=== PATIENT | female | born 1995 | race Caucasian/White ===

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

== ENCOUNTER → 2017-06-04 | Outpatient (CLI) | payer BC, OTHER | LOC: M EKG 15:43 | DX: E66.01 Morbid (severe) obesity due to excess calories (principal) | CPT/HCPCS: 71046 ==

== ENCOUNTER 2017-06-17 07:16 | Emergency (ER) | payer BC, OTHER ==
[2017-06-17] MEDS: NS 1,000 ML IV (07:30)
[2017-06-17 07:55] LABS: BASO # 0.1 10^3/uL (0.0-0.2); BASO % 0.6 % (0.0-1.0); EOS # 0.1 10^3/uL (0.0-0.50); EOS % 0.6 % (0.0-3.0); HEMATOCRIT 42.2 % (36.0-47.0); HEMOGLOBIN 13.9 g/dl (12.0-16.0); IMMATURE GRANULOCYTE % 0.5 % (0-3.0); LYMPH % 18.1 % (24.0-44.0); MEAN CORPUSCULAR HEMOGLOBIN 27.9 pg (27.0-33.0); MEAN CORPUSCULAR HGB CONC 32.9 g/dl (32.0-36.5); MEAN CORPUSCULAR VOLUME 84.6 fl (80.0-96.0); MONO # 0.7 10^3/uL (0.0-0.8); MONO % 6.6 % (0.0-5.0); NEUTROPHILS # 7.9 10^3/uL (1.8-7.7); NEUTROPHILS % 73.6 % (36.0-66.0); PLATELET COUNT, AUTOMATED 489 10^3/uL (150-450); RED BLOOD COUNT 4.99 10^6/uL (4.00-5.40); RED CELL DISTRIBUTION WIDTH 13.3 % (11.5-14.5); WHITE BLOOD COUNT 10.8 10^3/uL (4.0-10.0)
[2017-06-17 08:04] LABS: CONTROL LINE HCG INT CTR LINE PRESENT; HCG, SERUM QUALITATIVE NEGATIVE (NEGATIVE)
[2017-06-17 08:19] LABS: ANION GAP 9 MEQ/L (8-16); BLOOD UREA NITROGEN 15 MG/DL (7-18); CARBON DIOXIDE LEVEL 26 MEQ/L (21-32); CHLORIDE LEVEL 106 MEQ/L (98-107); CREATININE FOR GFR 0.68 MG/DL (0.55-1.30); GLUCOSE, FASTING 90 MG/DL (70-100); POTASSIUM SERUM 4.1 MEQ/L (3.5-5.1); SODIUM LEVEL 141 MEQ/L (136-145)
[2017-06-17 10:23] LABS: AMPHETAMINES LEVEL URINE NEGATIVE (NEGATIVE); BARBITURATES URINE NEGATIVE (NEGATIVE); BENZODIAZEPINES URINE NEGATIVE (NEGATIVE); CANNABINOIDS URINE NEGATIVE (NEGATIVE); COCAINE METABOLITE URINE NEGATIVE (NEGATIVE); METHADONE URINE NEGATIVE (NEGATIVE); OPIATES URINE NEGATIVE (NEGATIVE); PHENCYCLIDINE URINE NEGATIVE (NEGATIVE)
== END 2017-06-17 11:03 | disposition home or self-care (01) ==
LOC: M ED 07:16
DX: R55 Syncope and collapse (principal); S00.03XA Contusion of scalp, initial encounter; W22.8XXA Striking against or struck by other objects, initial encounter; Y92.89 Other specified places as the place of occurrence of the external cause; Z79.890 Hormone replacement therapy; Z79.899 Other long term (current) drug therapy; Z88.8 Allergy status to other drugs, medicaments and biological substances
CPT/HCPCS: 70450

== ENCOUNTER 2017-12-19 13:42 | Emergency (ER) | payer OTHER, BC ==
[2017-12-19] MEDS: ACETAMINOPHEN 325 MG TAB PO (14:27)
== END 2017-12-19 15:14 | disposition home or self-care (01) ==
LOC: M ED 13:42
DX: S40.012A Contusion of left shoulder, initial encounter (principal); V43.52XA Car driver injured in collision with other type car in traffic accident, initial encounter; Y92.410 Unspecified street and highway as the place of occurrence of the external cause; Y93.9 Activity, unspecified; Y99.9 Unspecified external cause status; Z79.899 Other long term (current) drug therapy; Z88.8 Allergy status to other drugs, medicaments and biological substances; Z91.040 Latex allergy status
CPT/HCPCS: 73030

== ENCOUNTER → 2017-12-19 | Outpatient (CLI) | payer BC, OTHER ==
[2017-12-19 17:25] LABS: ALBUMIN 3.2 GM/DL (3.2-5.2); ALKALINE PHOSPHATASE 76 U/L (45-117); ALT/SGPT 19 U/L (12-78); ANION GAP 6 MEQ/L (8-16); AST/SGOT 12 U/L (7-37); BILIRUBIN,TOTAL 0.4 MG/DL (0.2-1.0); BLOOD UREA NITROGEN 11 MG/DL (7-18); CALCIUM LEVEL 8.5 MG/DL (8.5-10.1); CARBON DIOXIDE LEVEL 29 MEQ/L (21-32); CHLORIDE LEVEL 108 MEQ/L (98-107); CREATININE FOR GFR 0.68 MG/DL (0.55-1.30); GLUCOSE, FASTING 59 MG/DL (70-100); POTASSIUM SERUM 3.9 MEQ/L (3.5-5.1); SODIUM LEVEL 143 MEQ/L (136-145); TOTAL PROTEIN 6.4 GM/DL (6.4-8.2)
[2017-12-19 17:33] LABS: BASO # 0.1 10^3/uL (0.0-0.2); BASO % 0.7 % (0.0-1.0); EOS # 0.1 10^3/uL (0.0-0.50); EOS % 0.7 % (0.0-3.0); HEMATOCRIT 39.5 % (36.0-47.0); HEMOGLOBIN 12.6 g/dl (12.0-15.5); IMMATURE GRANULOCYTE % 0.5 % (0-3.0); LYMPH # 3.5 10^3/uL (1.5-6.5); LYMPH % 36.6 % (24.0-44.0); MEAN CORPUSCULAR HEMOGLOBIN 28.7 pg (27.0-33.0); MEAN CORPUSCULAR HGB CONC 31.9 g/dl (32.0-36.5); MONO # 0.6 10^3/uL (0.0-0.8); MONO % 6.2 % (0.0-5.0); NEUTROPHILS # 5.3 10^3/uL (1.8-7.7); NEUTROPHILS % 55.3 % (36.0-66.0); PLATELET COUNT, AUTOMATED 409 10^3/uL (150-450); RED BLOOD COUNT 4.39 10^6/uL (4.00-5.40); RED CELL DISTRIBUTION WIDTH 13.2 % (11.5-14.5); WHITE BLOOD COUNT 9.6 10^3/uL (4.0-10.0)
== END ==
LOC: M LRY 09:46
DX: R10.813 Right lower quadrant abdominal tenderness (principal)

== ENCOUNTER → 2018-01-26 | Outpatient (CLI) | payer BC, OTHER | LOC: M RAD 07:30 | DX: K80.20 Calculus of gallbladder without cholecystitis without obstruction (principal); K76.0 Fatty (change of) liver, not elsewhere classified; R10.9 Unspecified abdominal pain | CPT/HCPCS: 76705 ==

== ENCOUNTER → 2018-06-21 | Outpatient (REF) | payer OTHER ==
[~2018-06-21] MED LIST changes: +IBUP-1022 PO; -IBUP600T26 PO; +NITR100C2; +SERT25TA88
== END ==
LOC: M LAB REF 11:50
PROVIDERS: ATTEND Physician Assistant
DX: J20.9 Acute bronchitis, unspecified (principal)

== ENCOUNTER 2018-07-20 05:07 | Emergency (ER) | payer OTHER ==
[~2018-07-20] VITALS: Ht 162.6 cm; Wt 118.2 kg
[2018-07-20 05:07] VITALS: BP 130/74
[2018-07-20] MEDS ORDERED: BOTO10VL IM (05:12)
[2018-07-20] MEDS ORDERED: KETOROLAC 60 MG/2 ML VIAL (J1885) IM ONE (06:15)
[2018-07-20] MEDS ORDERED: ACETAMINOPHEN TAB 650MG DOSE (2X325MG) PO ONE (06:15)
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
[2018-07-21] MEDS ORDERED: SERT-155 (11:47)
[2018-07-21] MEDS ORDERED: OMEP-221 (11:47)
[2018-07-21] MEDS ORDERED: METH2.5T48 (11:47)
== END 2018-07-20 06:24 | disposition home or self-care (01) ==
LOC: M ED 05:07
DX: M23.91 Unspecified internal derangement of right knee (principal); E07.9 Disorder of thyroid, unspecified; E78.9 Disorder of lipoprotein metabolism, unspecified; F33.9 Major depressive disorder, recurrent, unspecified; F41.9 Anxiety disorder, unspecified; Z79.899 Other long term (current) drug therapy; Z79.890 Hormone replacement therapy; Z88.8 Allergy status to other drugs, medicaments and biological substances; Z91.040 Latex allergy status

== ENCOUNTER 2018-07-21 11:41 | Emergency (ER) | payer OTHER ==
[2018-07-21 11:41] VITALS: BP 106/53
[~2018-07-21 11:41] MED LIST changes: +BOTO10VL IM
[2018-07-21] MEDS ORDERED: OMEP-221 (11:47)
[2018-07-21] MEDS ORDERED: SERT-155 (11:47)
[2018-07-21] MEDS ORDERED: METH2.5T48 (11:47)
== END 2018-07-21 13:07 | disposition home or self-care (01) ==
LOC: M ED 11:41
DX: M23.91 Unspecified internal derangement of right knee (principal); Z79.899 Other long term (current) drug therapy; Z88.8 Allergy status to other drugs, medicaments and biological substances; Z91.040 Latex allergy status

== ENCOUNTER 2019-01-11 21:57 | Emergency (ER) | payer OTHER ==
[~2019-01-11] VITALS: Ht 162.6 cm; Wt 136.4 kg
[~2019-01-11 21:57] MED LIST changes: +METH2.5T48; +OMEP-221; +SERT-155
[2019-01-11] MEDS ORDERED: CYCL5TAB PO (22:12)
[2019-01-11] MEDS ORDERED: DULO1CAP5 PO (22:12)
[2019-01-11] MEDS ORDERED: BENL200I IM (22:12)
[2019-01-11] MEDS ORDERED: AMIT10TA PO (22:12)
[2019-01-11] MEDS ORDERED: ONDANSETRON 4MG/2ML VIAL (J2405) IV ONE (22:30)
[2019-01-11 22:34] LABS: BASO # 0.1 10^3/uL (0.0-0.2); BASO % 0.6 % (0.0-1.0); EOS # 0.1 10^3/uL (0.0-0.5); EOS % 1.3 % (0.0-3.0); HEMATOCRIT 37.7 % (36.0-47.0); HEMOGLOBIN 12.5 g/dl (12.0-15.5); LYMPH # 3.3 10^3/uL (1.5-5.0); MEAN CORPUSCULAR HEMOGLOBIN 28.9 pg (27.0-33.0); MEAN CORPUSCULAR HGB CONC 33.2 g/dl (32.0-36.5); MEAN CORPUSCULAR VOLUME 87.1 fl (80.0-96.0); MONO # 0.6 10^3/uL (0.0-0.8); MONO % 6.6 % (0.0-5.0); NEUTROPHILS # 5.5 10^3/uL (1.5-8.5); NEUTROPHILS % 57.3 % (36.0-66.0); PLATELET COUNT, AUTOMATED 406 10^3/uL (150-450); RED BLOOD COUNT 4.33 10^6/uL (4.00-5.40); WHITE BLOOD COUNT 9.6 10^3/uL (4.0-10.0)
[2019-01-11] MEDS ORDERED: METOCLOPRAMIDE INJ 10MG/2ML VIAL (J2765) IV ONE (22:45)
[2019-01-11] MEDS ORDERED: NS 1,000 ML IV ONE (22:45)
[2019-01-11 23:02] LABS: ALBUMIN 3.3 GM/DL (3.2-5.2); ALT/SGPT 20 U/L (12-78); BILIRUBIN,TOTAL 0.3 MG/DL (0.2-1.0); BLOOD UREA NITROGEN 17 MG/DL (7-18); CALCIUM LEVEL 8.9 MG/DL (8.5-10.1); CARBON DIOXIDE LEVEL 26 MEQ/L (21-32); CHLORIDE LEVEL 108 MEQ/L (98-107); CREATININE FOR GFR 0.87 MG/DL (0.55-1.30); GLOMERULAR FILTRATION RATE > 60.0 (>60); GLUCOSE, FASTING 90 MG/DL (70-100); POTASSIUM SERUM 4.5 MEQ/L (3.5-5.1); SODIUM LEVEL 140 MEQ/L (136-145); TOTAL PROTEIN 6.4 GM/DL (6.4-8.2)
[2019-01-12 00:37] LABS: HEMOGLOBIN A1c 5.4 %
[2019-01-12 00:43] VITALS: BP 172/80
--- NOTE | 2019-01-12 08:18 | ECGEPIP ---
[facility] - ED Test Date: 2019-01-11 Pat Name: SHAYNE REID Department: Room: - Gender: Female [employer] Operator: JMartin : 1995 Requested By: DANY Allred PA-C Order Number: [id number] Reading MD: Kiki Marvin Measurements Intervals [place] Rate: 81 P: -3 ME: 175 QRS: 15 QRSD: 105 T: 22 QT: 360 QTc: 418 Interpretive Statements SINUS RHYTHM SIMILAR 06/17/17 Electronically Signed on 01-12-2019 8:15:57 EDT by Kiki Marvin
== END 2019-01-12 01:43 | disposition home or self-care (01) ==
LOC: M ED 21:57
DX: E16.2 Hypoglycemia, unspecified (principal); R41.82 Altered mental status, unspecified; E78.5 Hyperlipidemia, unspecified; E03.9 Hypothyroidism, unspecified; Z98.84 Bariatric surgery status; Z88.8 Allergy status to other drugs, medicaments and biological substances; Z91.040 Latex allergy status; Z79.899 Other long term (current) drug therapy
CPT/HCPCS: 36415; 80053; 83036; 84702; 85025; 93005; 96374; 99284; J2765

== ENCOUNTER → 2019-08-11 | Outpatient (REF) | payer OTHER ==
[~2019-08-11] MED LIST changes: +AMIT10TA PO; +BENL200I IM; +CYCL5TAB PO; +DULO1CAP5 PO; -SERT-155; +SERT25TA21; -SERT25TA88; +SERT50TA29
== END ==
LOC: M LAB REF 09:30
PROVIDERS: ATTEND Nurse Practitioner Family
DX: J02.9 Acute pharyngitis, unspecified (principal)

== ENCOUNTER → 2020-01-02 | Outpatient (CLI) | payer OTHER ==
[~2020-01-02] MED LIST changes: +CYCL-707 PO; -CYCL10TA PO
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
== END ==
LOC: M LRY 15:07
PROVIDERS: ATTEND Physician Assistant
DX: S80.02XA Contusion of left knee, initial encounter (principal); X58.XXXA Exposure to other specified factors, initial encounter; Y92.89 Other specified places as the place of occurrence of the external cause

== ENCOUNTER 2020-03-18 11:40 | Emergency (ER) | payer OTHER, BC ==
[~2020-03-18] VITALS: Ht 162.6 cm; Wt 167.8 kg
[2020-03-18] MEDS ORDERED: AMIT75TA (12:00)
[2020-03-18] MEDS ORDERED: HYDR50TA70 (12:00)
[2020-03-18] MEDS ORDERED: KETOROLAC 60MG 2ML VIAL IM ONE (14:00)
[2020-03-18] MEDS ORDERED: LIDOCAINE 5% (LIDODERM) PATCH TD ONE (14:00)
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
[2020-03-18] MEDS ORDERED: LIDO5DIS41 TOP (14:40)
[2020-03-18] MEDS ORDERED: ROBA750T4 PO (14:40)
[2020-03-18 15:09] VITALS: BP 131/85
[2020-03-18] MEDS ORDERED: **NOTE PATIENT COMMENT** MISC XX SCH (21:00)
== END 2020-03-18 15:13 | disposition home or self-care (01) ==
LOC: M ED 11:40
DX: M54.9 Dorsalgia, unspecified (principal); V43.52XA Car driver injured in collision with other type car in traffic accident, initial encounter; Y92.410 Unspecified street and highway as the place of occurrence of the external cause; M32.9 Systemic lupus erythematosus, unspecified; M79.7 Fibromyalgia; G43.909 Migraine, unspecified, not intractable, without status migrainosus; F17.200 Nicotine dependence, unspecified, uncomplicated; Z91.040 Latex allergy status; Z88.8 Allergy status to other drugs, medicaments and biological substances; Z79.899 Other long term (current) drug therapy
CPT/HCPCS: 72125; 72128; 72131; 96372; 99283; J1885

== ENCOUNTER → 2020-05-15 | Outpatient (CLI) | payer BC, OTHER ==
[~2020-05-15] MED LIST changes: +AMIT75TA; +GASTROGRAFIN SOLUTION 30ML (Q9963) As Ordered ONE; +HYDR50TA70; +ISOVUE-370 76% 100ML VIAL As Ordered ONE; +LIDO5DIS41 TOP; +ROBA750T4 PO
--- NOTE | 2020-05-22 11:26 | REP ---
INDICATION: ABD PAIN. COMPARISON: None TECHNIQUE: Axial contrast-enhanced images from the lung bases to the pubic symphysis using oral and 100 cc Isovue 370 intravenous contrast material. Coronal and sagittal reformations obtained. This CT examination was performed using the following dose reduction techniques: Automated exposure control, adjustment of mA and/or kv according to the patient's size, and the use of iterative reconstruction technique. FINDINGS: Lung bases are clear. Visualized heart and pericardium normal. There is evidence for prior gastric bypass surgery and cholecystectomy without associated acute findings. Liver, spleen, pancreas, bilateral adrenal glands and kidneys are normal. The enteric system including gastric bypass, small, and large bowel appears normal. No evidence for obstruction or acute inflammatory process. Normal terminal ileum and appendix are identified in the right lower quadrant. Pelvis demonstrates normal bladder and age-appropriate uterus/adnexa. No ascites. No free air. No intraperitoneal or retroperitoneal adenopathy. Abdominal aorta and vasculature appear normal. Musculoskeletal structures are intact and without acute osseous abnormality. IMPRESSION: No acute abdominopelvic pathology appreciated. Evidence for prior gastric bypass surgery and cholecystectomy. <Electronically signed by Tim Waldrop > 05/22/20 1899
== END ==
LOC: M RAD 13:32
PROVIDERS: ATTEND Nurse Practitioner Women's Health
DX: R10.9 Unspecified abdominal pain (principal); Z98.84 Bariatric surgery status
CPT/HCPCS: 74177; Q9963; Q9967

== ENCOUNTER 2020-07-13 08:02 | Emergency (ER) | payer BC, OTHER ==
[~2020-07-13] VITALS: Ht 162.6 cm; Wt 155.8 kg
[~2020-07-13 08:02] MED LIST changes: -AMIT10TA PO; +AMIT10TA7 PO; -GASTROGRAFIN SOLUTION 30ML (Q9963) As Ordered ONE; -ISOVUE-370 76% 100ML VIAL As Ordered ONE
[2020-07-13] MEDS ORDERED: DULO1CAP6 (08:10)
[2020-07-13] MEDS ORDERED: methylPREDNISolone 125MG 2ML VIAL IV ONE (08:30)
[2020-07-13] MEDS ORDERED: MORPHINE 4 MG/ML 1ML VIAL/SYRINGE (J2270) IV ONE (08:30)
[2020-07-13] MEDS ORDERED: NS 1,000 ML IV ONE (08:30)
[2020-07-13 08:40] LABS: BASO # 0.1 10^3/uL (0.0-0.2); BASO % 0.7 % (0.0-1.0); EOS # 0.2 10^3/uL (0.0-0.5); EOS % 1.2 % (0.0-3.0); HEMATOCRIT 40.7 % (36.0-47.0); HEMOGLOBIN 13.1 g/dl (12.0-15.5); LYMPH # 2.8 10^3/uL (1.5-5.0); LYMPH % 23.5 % (24.0-44.0); MEAN CORPUSCULAR HEMOGLOBIN 28.8 pg (27.0-33.0); MEAN CORPUSCULAR HGB CONC 32.2 g/dl (32.0-36.5); MEAN CORPUSCULAR VOLUME 89.5 fl (80.0-96.0); MONO # 0.7 10^3/uL (0.0-0.8); MONO % 5.6 % (2.0-8.0); NEUTROPHILS # 8.3 10^3/uL (1.5-8.5); NEUTROPHILS % 68.7 % (36.0-66.0); PLATELET COUNT, AUTOMATED 497 10^3/uL (150-450); RED BLOOD COUNT 4.55 10^6/uL (4.00-5.40); WHITE BLOOD COUNT 12.1 10^3/uL (4.0-10.0)
[2020-07-13] MEDS ORDERED: BACITRACIN OINTMENT 30GM TUBE TOP ONE (08:40)
[2020-07-13] MEDS ORDERED: ONDANSETRON 4MG/2ML VIAL IV ONE (08:40)
[2020-07-13 08:58] LABS: ERYTHROCYTE SEDIMENTATION RATE 30 mm/hr (0-20)
[2020-07-13 09:04] LABS: ALBUMIN 3.3 GM/DL (3.2-5.2); ALT/SGPT 22 U/L (12-78); BILIRUBIN,DIRECT < 0.1 MG/DL (0.0-0.2); BILIRUBIN,TOTAL 0.2 MG/DL (0.2-1.0); BLOOD UREA NITROGEN 10 MG/DL (7-18); C REACTIVE PROTEIN QUANTITATIV 0.65 MG/DL (0.00-0.30); CALCIUM LEVEL 8.7 MG/DL (8.5-10.1); CARBON DIOXIDE LEVEL 26 MEQ/L (21-32); CHLORIDE LEVEL 107 MEQ/L (98-107); CPK CREATINE PHOSPHOKINASE 142 U/L (26-192); CREATININE FOR GFR 0.91 MG/DL (0.55-1.30); GLOMERULAR FILTRATION RATE > 60.0 (>60); GLUCOSE, FASTING 95 MG/DL (70-100); POTASSIUM SERUM 3.9 MEQ/L (3.5-5.1); SODIUM LEVEL 139 MEQ/L (136-145); TOTAL PROTEIN 6.6 GM/DL (6.4-8.2)
[2020-07-13 09:18] LABS: RSV AMPLIFICATION NEGATIVE (NEGATIVE)
[2020-07-13] MEDS ORDERED: KETOROLAC 30 MG/ML 1ML VIAL IV ONE (09:55)
[2020-07-13] MEDS ORDERED: METOCLOPRAMIDE INJ 10MG/2ML VIAL (J2765 PER 1) IV ONE (09:55)
--- NOTE | 2020-07-13 09:56 | REP ---
INDICATION: fever COMPARISON: 06/04/2017 TECHNIQUE: PA and lateral. FINDINGS: The mediastinum and cardiac silhouette are normal. The lung reyes are clear and without acute consolidation, effusion, or pneumothorax. The skeletal structures are intact and normal. IMPRESSION: No acute cardiopulmonary process. <Electronically signed by Tim Waldrop > 07/13/20 [id number]
[2020-07-13] MEDS ORDERED: HYDR-4571 PO (13:45)
[2020-07-13] MEDS ORDERED: VALA1TAB5 PO (13:45)
[2020-07-13] MEDS ORDERED: BETA0.0543 TOP (13:45)
[2020-07-13] MEDS ORDERED: PRED20TA PO (13:45)
[2020-07-13] MEDS ORDERED: NORCO, ANEXSIA 5/325MG TABLET (HYDROcodone/ACETAMINOPHEN) PO ONE (13:45)
[2020-07-13 13:58] VITALS: BP 120/57
[2020-07-13] MEDS ORDERED: CEFD300CAP PO (14:56)
== END 2020-07-13 14:00 | disposition home or self-care (01) ==
LOC: M ED 08:02
DX: M32.19 Other organ or system involvement in systemic lupus erythematosus (principal); M79.7 Fibromyalgia; Z79.899 Other long term (current) drug therapy; Z88.8 Allergy status to other drugs, medicaments and biological substances; Z91.040 Latex allergy status
CPT/HCPCS: 36415; 71046; 80048; 80076; 81001; 82550; 85025; 85652; 86140; 87088; 87186; 87631; 96374; 96375; 99284; J1885; J2270; J2405; J2765; J2930

== ENCOUNTER → 2020-07-16 | Outpatient (REF) | payer BC, OTHER ==
[~2020-07-16] MED LIST changes: +BETA0.0543 TOP; +CEFD300CAP PO; +DULO1CAP6; +HYDR-4571 PO; +PRED20TA PO; +VALA1TAB5 PO
== END ==
LOC: M LAB REF 19:08
PROVIDERS: ATTEND Dermatology
DX: L30.9 Dermatitis, unspecified (principal)

== ENCOUNTER → 2020-07-26 | Outpatient (CLI) | payer BC ==
[2020-07-26 12:35] LABS: BASO # 0.1 10^3/uL (0.0-0.2); BASO % 0.8 % (0.0-1.0); EOS # 0.2 10^3/uL (0.0-0.5); HEMATOCRIT 41.4 % (36.0-47.0); HEMOGLOBIN 13.5 g/dl (12.0-15.5); LYMPH # 1.9 10^3/uL (1.5-5.0); LYMPH % 19.9 % (24.0-44.0); MEAN CORPUSCULAR HGB CONC 32.6 g/dl (32.0-36.5); MEAN CORPUSCULAR VOLUME 88.8 fl (80.0-96.0); MONO # 0.7 10^3/uL (0.0-0.8); MONO % 7.6 % (2.0-8.0); NEUTROPHILS # 6.7 10^3/uL (1.5-8.5); NEUTROPHILS % 69.3 % (36.0-66.0); PLATELET COUNT, AUTOMATED 527 10^3/uL (150-450); RED BLOOD COUNT 4.66 10^6/uL (4.00-5.40); WHITE BLOOD COUNT 9.7 10^3/uL (4.0-10.0)
[2020-07-26 13:11] LABS: ALBUMIN 3.4 GM/DL (3.2-5.2); ALT/SGPT 24 U/L (12-78); BILIRUBIN,TOTAL 0.4 MG/DL (0.2-1.0); BLOOD UREA NITROGEN 10 MG/DL (7-18); CALCIUM LEVEL 9.2 MG/DL (8.5-10.1); CARBON DIOXIDE LEVEL 26 MEQ/L (21-32); CHLORIDE LEVEL 107 MEQ/L (98-107); COMPLEMENT C4 31 MG/DL (10-40); CREATININE FOR GFR 0.71 MG/DL (0.55-1.30); GLOMERULAR FILTRATION RATE > 60.0 (>60); GLUCOSE, FASTING 75 MG/DL (70-100); POTASSIUM SERUM 4.3 MEQ/L (3.5-5.1); SODIUM LEVEL 139 MEQ/L (136-145); TOTAL PROTEIN 6.5 GM/DL (6.4-8.2)
[2020-07-26 13:26] LABS: ERYTHROCYTE SEDIMENTATION RATE 15 mm/hr (0-20)
== END ==
LOC: M LAB 10:39
PROVIDERS: ATTEND Dermatology
DX: M32.8 Other forms of systemic lupus erythematosus (principal)

== ENCOUNTER → 2020-12-18 | Outpatient (CLI) | payer SELFPAY, BC | LOC: M LABSMTC 09:48 | PROVIDERS: ATTEND Pediatrics | DX: Z11.52 Encounter for screening for COVID-19 (principal) ==

== ENCOUNTER → 2021-01-03 | Outpatient (REF) | LOC: M LABSMTC 10:45 | PROVIDERS: ATTEND Pediatrics | DX: Z11.52 Encounter for screening for COVID-19 (principal) ==

== ENCOUNTER → 2021-05-07 | Outpatient (REF) | LOC: M LABSMTC 13:49 | PROVIDERS: ATTEND Pediatrics | DX: Z11.52 Encounter for screening for COVID-19 (principal) ==

== ENCOUNTER → 2021-08-18 | Outpatient (REF) ==
[~2021-08-18] MED LIST changes: -OMEP-221; +OMEP40CA5
== END ==
LOC: M LABSMTC 11:23
PROVIDERS: ATTEND Pediatrics
DX: Z20.822 Contact with and (suspected) exposure to COVID-19 (principal)

== ENCOUNTER → 2022-07-01 | Outpatient (REF) | LOC: M LABSMTC 09:20 | PROVIDERS: ATTEND Family Medicine | DX: Z11.52 Encounter for screening for COVID-19 (principal) ==

== ENCOUNTER → 2022-09-09 | Outpatient (CLI) | payer BC | LOC: M RAD 14:01 | PROVIDERS: ATTEND Nurse Practitioner Family | DX: M25.572 Pain in left ankle and joints of left foot (principal) ==

== ENCOUNTER 2023-01-10 05:06 | Emergency (ER) | payer BC ==
[~2023-01-10] VITALS: Ht 165.1 cm; Wt 140.9 kg
[2023-01-10 05:44] VITALS: BP 135/78; TEMP 97.8; O2SAT 100
[2023-01-10 05:49] LABS: BASO # 0.1 10^3/uL (0.0-0.2); BASO % 0.7 % (0.0-1.0); EOS # 0.1 10^3/uL (0.0-0.5); EOS % 0.7 % (0.0-3.0); HEMATOCRIT 36.2 % (36.0-47.0); HEMOGLOBIN 12.2 g/dl (12.0-15.5); LYMPH # 4.5 10^3/uL (1.5-5.0); LYMPH % 34.6 % (24.0-44.0); MEAN CORPUSCULAR HGB CONC 33.7 g/dl (32.0-36.5); MEAN CORPUSCULAR VOLUME 86.2 fl (80.0-96.0); MONO # 0.7 10^3/uL (0.0-0.8); MONO % 5.6 % (2.0-8.0); NEUTROPHILS # 7.5 10^3/uL (1.5-8.5); NEUTROPHILS % 58.2 % (36.0-66.0); PLATELET COUNT, AUTOMATED 441 10^3/uL (150-450); WHITE BLOOD COUNT 12.9 10^3/uL (4.0-10.0)
[2023-01-10 06:13] LABS: LIPASE 34 U/L (12-53)
[2023-01-10 06:15] LABS: ALBUMIN 3.5 G/DL (3.2-5.2); ALKALINE PHOSPHATASE 84 U/L (46-116); ALT/SGPT 15 U/L (7.0-40); AST/SGOT 13 U/L (<34); BILIRUBIN,DIRECT 0.1 MG/DL (<0.4); BILIRUBIN,TOTAL 0.3 MG/DL (0.3-1.2); BLOOD UREA NITROGEN 14 MG/DL (9-23); CALCIUM LEVEL 8.9 MG/DL (8.5-10.1); CARBON DIOXIDE LEVEL 25 MMOL/L (20-31); CHLORIDE LEVEL 104 MMOL/L (98-107); CREATININE FOR GFR 0.93 MG/DL (0.55-1.30); GLOMERULAR FILTRATION RATE > 60.0 (>60); GLUCOSE, FASTING 95 MG/DL (60-100); POTASSIUM SERUM 3.8 MMOL/L (3.5-5.1); SODIUM LEVEL 137 MMOL/L (136-145); TOTAL PROTEIN 6.8 G/DL (5.7-8.2)
[2023-01-10 06:21] LABS: HCG, SERUM QUALITATIVE NEGATIVE (NEGATIVE)
[2023-01-10] MEDS ORDERED: NS 1,000 ML IV ONE (06:55)
[2023-01-10] MEDS ORDERED: MORPHINE 4 MG/ML 1ML VIAL IV ONE ×2 (06:55→08:05)
[2023-01-10] MEDS ORDERED: ISOVUE-370 76% 100ML VIAL As Ordered ONE (07:00)
[2023-01-10] MEDS ORDERED: METOCLOPRAMIDE INJ 10MG/2ML VIAL IV ONE (07:00)
[2023-01-10] MEDS ORDERED: PROMETHAZINE 25MG/ML 1ML VIAL IV ONE (08:40)
[2023-01-10] MEDS ORDERED: DICYCLOMINE 10 MG CAP PO ONE (08:40)
[2023-01-10] MEDS ORDERED: PROM25TA12 PO (09:34)
[2023-01-10] MEDS ORDERED: DICY-61 PO (09:34)
[2023-01-10] MEDS ORDERED: MAGN296S37 PO (09:42)
[2023-01-10] MEDS ORDERED: SENN-186 PO (09:42)
== END 2023-01-10 10:15 | disposition home or self-care (01) ==
LOC: M ED 05:06
DX: R10.9 Unspecified abdominal pain (principal); R11.10 Vomiting, unspecified; K59.00 Constipation, unspecified; E78.5 Hyperlipidemia, unspecified; E03.9 Hypothyroidism, unspecified; M32.9 Systemic lupus erythematosus, unspecified; R51.9 Headache, unspecified; Z88.8 Allergy status to other drugs, medicaments and biological substances; Z91.040 Latex allergy status; Z79.899 Other long term (current) drug therapy; Z79.52 Long term (current) use of systemic steroids
CPT/HCPCS: 74177; 80048; 80076; 81001; 83690; 84703; 85025; 96361; 96374; 96375; 96376; 99284; J2550; J2765; Q9967

== ENCOUNTER → 2024-03-19 | Outpatient (REF) | payer BC ==
[~2024-03-19] MED LIST changes: -CYCL5TAB PO; +CYCL5TAB4 PO; +DICY-61 PO; +MAGN296S37 PO; +PROM25TA12 PO; +SENN-186 PO
== END ==
LOC: M LAB REF 18:12
PROVIDERS: ATTEND Physician Assistant
DX: B34.9 Viral infection, unspecified (principal)

== ENCOUNTER → 2024-06-05 | Outpatient (REF) | LOC: M EMP 07:37 | PROVIDERS: ATTEND Family Medicine | DX: Z11.52 Encounter for screening for COVID-19 (principal) ==

== ENCOUNTER 2025-01-18 19:53 | Emergency (ER) | payer BC ==
[~2025-01-18 19:53] MED LIST changes: +AMIT10TA11 PO; -AMIT10TA7 PO; -IBUP-1022 PO; +IBUP600T42 PO; +LIDO1ADH93 TOP; -LIDO5DIS41 TOP
[2025-01-18] MEDS ORDERED: ATROPINE SULF 1 MG/10 ML SYRINGE ONE (19:54)
[2025-01-18] MEDS ORDERED: EPINEPHrine 1 MG/10 ML SYRINGE 1.5IN ONE (19:54)
[2025-01-18] MEDS ORDERED: SODIUM BICARBONATE 8.4% INJ 50ML SYRINGE ONE (19:54)
[2025-01-18] MEDS ORDERED: NOREPINEPHRINE 4 MG IN D5W 250 ML IVBAG (16 MCG/ML) As Ordered ONE (20:00)
[2025-01-18 21:07] VITALS: BP 141/90
== END 2025-01-19 00:03 | disposition expired ==
LOC: M ED 19:53
DX: I46.9 Cardiac arrest, cause unspecified (principal); E11.9 Type 2 diabetes mellitus without complications; M79.7 Fibromyalgia; Z88.8 Allergy status to other drugs, medicaments and biological substances; Z91.040 Latex allergy status
CPT/HCPCS: 31500; 92950; 99285; J0168; J0461